=== PATIENT | male | born 1940 | race Caucasian/White ===

== ENCOUNTER 2016-10-18 16:00 | Emergency (ER) | payer OTHER ==
[2016-10-18 17:45] LABS: BASOPHIL % 0.9 % (0-2); PLATELET COUNT 215 x10^3mcL (130-400)
[2016-10-18 17:57] LABS: CALCIUM 8.8 mg/dL (8.5-10.1); CHLORIDE SERUM 105 mmol/L (98-107); CREATININE SERUM 0.6 mg/dL (0.7-1.3); GLUCOSE SERUM 81 mg/dL (74-106); POTASSIUM SERUM 4.3 mmol/L (3.5-5.1); SODIUM SERUM 139 mmol/L (136-145)
[2016-10-18 17:58] LABS: RED CELL DISTRIBUTION WIDTH 17.7 % (11.5-14.5)
[2016-10-18 18:01] LABS: ALKALINE PHOSPHATASE 89 U/L (46-116); ALT/SGPT 13 U/L (16-63); AST/SGOT 18 U/L (15-37); BILIRUBIN TOTAL 0.61 mg/dL (0.20-1.00); TOTAL PROTEIN, SERUM 7.2 g/dL (6.4-8.2)
[2016-10-18 18:05] LABS: ALBUMIN 2.8 g/dL (3.4-5.0)
[2016-10-18 18:18] LABS: microscopic required? NO
[2016-10-18 18:30] LABS: UA SPECIFIC GRAVITY 1.015 (1.005-1.035); urine erythrocyte NEGATIVE (NEGATIVE)
[2016-10-18 23:06] VITALS: BP 157/85
== END 2016-10-18 23:07 | disposition short-term general hospital (02) ==
LOC: ED 16:00
PROVIDERS: Emergency Medicine
DX: K94.23 Gastrostomy malfunction (principal); E86.0 Dehydration; K56.7 Ileus, unspecified; E78.5 Hyperlipidemia, unspecified; G30.9 Alzheimer's disease, unspecified; F02.80 Dementia in other diseases classified elsewhere, unspecified severity, without behavioral disturbance, psychotic disturbance, mood disturbance, and anxiety; I48.91 Unspecified atrial fibrillation
CPT/HCPCS: J2001; J2765; J7040; Q9963

== ENCOUNTER 2017-06-17 16:50 | Emergency (ER) | payer OTHER ==
[~2017-06-17] VITALS: Ht 172.7 cm; Wt 68.0 kg
[2017-06-17 16:55] VITALS: Ht 172.7 cm; Wt 68.0 kg
[2017-06-17] MEDS ORDERED: APAP500 MG RC (17:06)
[2017-06-17] MEDS ORDERED: LAXATIVE5 M1 RC (17:07)
[2017-06-17] MEDS ORDERED: COMPAZINE10 M1 PR (17:08)
[2017-06-17] MEDS ORDERED: MORPHINE SULFAT30 M2 PO (17:09)
[2017-06-17] MEDS ORDERED: HYOSCYAMIN PO (17:09)
[2017-06-17] MEDS ORDERED: MULTIVITAMIN1 SGL PO (17:10)
[2017-06-17] MEDS ORDERED: PHARMASSURE VI500 MG PO (17:11)
[2017-06-17 19:21] VITALS: BP 127/91
== END 2017-06-17 19:21 | disposition home or self-care (01) ==
LOC: ED 16:50
DX: K94.23 Gastrostomy malfunction (principal); G30.9 Alzheimer's disease, unspecified; I48.91 Unspecified atrial fibrillation; F03.90 Unspecified dementia, unspecified severity, without behavioral disturbance, psychotic disturbance, mood disturbance, and anxiety; F02.80 Dementia in other diseases classified elsewhere, unspecified severity, without behavioral disturbance, psychotic disturbance, mood disturbance, and anxiety; F41.9 Anxiety disorder, unspecified
CPT/HCPCS: Q9967

== ENCOUNTER 2017-06-23 15:52 | Emergency (ER) | payer OTHER ==
[~2017-06-23] VITALS: Ht 190.5 cm; Wt 63.5 kg
[~2017-06-23 15:52] MED LIST: APAP500 MG RC; COMPAZINE10 M1 PR; HYOSCYAMIN PO; LAXATIVE5 M1 RC; MORPHINE SULFAT30 M2 PO; MULTIVITAMIN1 SGL PO; PHARMASSURE VI500 MG PO
[2017-06-23 15:55] VITALS: Ht 190.5 cm; Wt 63.5 kg
[2017-06-23 19:20] VITALS: BP 107/78
== END 2017-06-23 19:20 | disposition home or self-care (01) ==
LOC: ED 15:52
DX: K94.23 Gastrostomy malfunction (principal); G30.9 Alzheimer's disease, unspecified; E78.5 Hyperlipidemia, unspecified; I63.9 Cerebral infarction, unspecified; F41.9 Anxiety disorder, unspecified
CPT/HCPCS: Q9967

== ENCOUNTER 2017-07-21 10:40 | Inpatient (IN) | payer OTHER ==
[~2017-07-21] VITALS: Ht 180.3 cm; Wt 62.3 kg
[~2017-07-21 10:40] MED LIST changes: +BACO TOP; +BACTRIM DS1 TAB PO; +CLEOCIN HCL300 MG GT; +HIBICLENS118 ML TOP; +LAC GT; +LEVAQUIN750 MG GT; +MOM PO
[2017-07-21 11:39] LABS: BASOPHIL % 0.6 % (0-2); PLATELET COUNT 312 x10^3mcL (130-400)
[2017-07-21 11:41] LABS: RED CELL DISTRIBUTION WIDTH 16.8 % (11.5-14.5)
[2017-07-21 11:52] LABS: CALCIUM 8.1 mg/dL (8.5-10.1); CARBON DIOXIDE 32.9 mmol/L (21-32); CHLORIDE SERUM 100 mmol/L (98-107); CREATININE SERUM 1.5 mg/dL (0.7-1.3); GLUCOSE SERUM 114 mg/dL (74-106); POTASSIUM SERUM 5.1 mmol/L (3.5-5.1); SODIUM SERUM 137 mmol/L (136-145)
[2017-07-21 12:04] LABS: ALKALINE PHOSPHATASE 85 U/L (46-116); ALT/SGPT 26 U/L (16-63); AST/SGOT 45 U/L (15-37); BILIRUBIN TOTAL 0.3 mg/dL (0.20-1.00); TOTAL PROTEIN, SERUM 7.4 g/dL (6.4-8.2)
[2017-07-21 12:16] LABS: ALBUMIN 2.8 g/dL (3.4-5.0)
[2017-07-21 12:49] LABS: microscopic required? NO
[2017-07-21 13:04] LABS: urine erythrocyte NEGATIVE (NEGATIVE)
[2017-07-21 13:42] VITALS: BP 130/80
[2017-07-21 13:43] VITALS: BP 120/68
[2017-07-21 13:48] LABS: CHOLESTEROL/HDL RATIO 3.6; MAGNESIUM 2.9 mg/dL (1.8-2.4); PHOSPHOROUS 4.9 mg/dL (2.5-4.9)
[2017-07-21 13:54] LABS: T3 TOTAL 0.41 ng/mL
[2017-07-21 13:56] LABS: FREE T4 1.06 ng/dL (0.76-1.46); FREE THYROXINE INDEX 1.8 ug/dL (1.4-4.5); T4(THYROXINE) 5.4 ug/dL (4.7-13.3)
[2017-07-21 14:06] VITALS: Ht 180.3 cm; Wt 62.3 kg
[2017-07-21 14:46] LABS: AMPHETAMINE QUAL UR NONE DETECTED (NEG <=1000)
[2017-07-21 18:23] VITALS: BP 129/68
[2017-07-21 20:49] VITALS: BP 126/72
[2017-07-22 05:24] VITALS: BP 96/55
[2017-07-22 09:36] VITALS: BP 68/45
[2017-07-22 12:26] VITALS: BP 61/40
== END 2017-07-22 19:00 | disposition expired | DRG 177 ==
LOC: ED 10:40 → DU 12:23
PROVIDERS: Emergency Medicine; Family Medicine
DX: J69.0 Pneumonitis due to inhalation of food and vomit (principal); J96.01 Acute respiratory failure with hypoxia; N17.0 Acute kidney failure with tubular necrosis; E43 Unspecified severe protein-calorie malnutrition; L97.419 Non-pressure chronic ulcer of right heel and midfoot with unspecified severity; Z68.1 Body mass index [BMI] 19.9 or less, adult; L97.529 Non-pressure chronic ulcer of other part of left foot with unspecified severity; E11.621 Type 2 diabetes mellitus with foot ulcer; L89.151 Pressure ulcer of sacral region, stage 1; I48.91 Unspecified atrial fibrillation; E83.41 Hypermagnesemia; E03.9 Hypothyroidism, unspecified; I10 Essential (primary) hypertension; F03.90 Unspecified dementia, unspecified severity, without behavioral disturbance, psychotic disturbance, mood disturbance, and anxiety; Z86.73 Personal history of transient ischemic attack (TIA), and cerebral infarction without residual deficits; Z66 Do not resuscitate; Z51.5 Encounter for palliative care
CPT/HCPCS: 36600; 83880; 84439; 87804; J2270; J2310; J7030; J7040; J7620; Q0092